=== PATIENT | female | born 1955 | race Caucasian/White ===

== ENCOUNTER 2018-03-30 09:52 | Emergency (ER) | payer BC ==
--- NOTE | 2018-03-30 10:19 | UC ---
Respiratory Complaint HPI - HPI Summary HPI Summary: 62 yo female presents with sinus pain/pressure/congestion, post nasal drip, and productive cough for the last week. She has been taking sudafed and OTC cold and cough medicine with no relief. Denies fever, chills, SOB, chest pain, n/v. - History of Current Complaint Stated Complaint: URI Time Seen by Provider: 03/30/18 10:19 Hx Obtained From: Patient Hx Last Menstrual Period: n/a Onset/Duration: Gradual Onset Severity Initially: Mild Severity Currently: Mild Pain Intensity: 3 Pain Scale Used: 0-10 Numeric - Allergies/Home Medications Allergies/Adverse Reactions: Allergies Allergy/AdvReac Type Severity Reaction Status Date / Time No Known Allergies Allergy Verified 03/30/18 10:21 Home Medications: Home Medications Guaifenesin/Dextromethorphan [Cough-Chest Congestion Dm Liq] 1 dose PO Q4H PRN 03/30/18 [History Confirmed 03/30/18] PMH/Surg Hx/FS Hx/Imm Hx - Additional Past Medical History Additional PMH: None Other History Of: Negative For: HIV, Hepatitis B, Hepatitis C - Surgical History Surgical History: Yes Surgery Procedure, Year, and Place: D&C - Family History Known Family History: Positive: None Negative: Cardiac Disease, Hypertension - Social History Occupation: Employed Full-time Lives: With Family Alcohol Use: Weekly Substance Use Type: None Smoking Status (MU): Never Smoked Tobacco Review of Systems Constitutional: Negative Skin: Negative Eyes: Negative ENT: Nasal Discharge, Sinus Congestion, Sinus Pain/Tenderness Respiratory: Cough Cardiovascular: Negative Gastrointestinal: Negative Neurovascular: Negative Neurological: Negative Psychological: Negative All Other Systems Reviewed And Are Negative: Yes Physical Exam - Summary Physical Exam Summary: GENERAL: NAD. WDWN. No pain distress. SKIN: No rashes, sores, lesions, or open wounds. HEENT: Head: AT/NC Eyes: EOM intact. Conjunctiva clear without inflammation or discharge. Ears: Hearing grossly normal. TMs intact, no bulging, erythema, or edema. Nose: Nasal mucosa mildly swollen and erythematous with yellow/ clear discharge. NTTP maxillary and frontal sinus. Positive post nasal drip Throat: Posterior oropharynx without exudates, erythema, or tonsillar enlargement. Uvula midline. NECK: Supple. Nontender. No lymphadenopathy. CHEST: CTAB. No r/r/w. No accessory muscle use. Breathing comfortably and in no distress. CV: RRR. Without m/r/g. Pulses intact. NEURO: Alert. PSYCH: Age appropriate behavior. Triage Information Reviewed: Yes Vital Signs: Vital Signs: Temp Pulse Resp BP Pulse Ox 98.3 F 66 20 150/74 97 03/30/18 10:16 03/30/18 10:16 03/30/18 10:16 03/30/18 10:16 03/30/18 10:16 Vital Signs Reviewed: Yes Respiratory Course/Dx - Course Course Of Treatment: Sinusitis - Differential Dx/Diagnosis Provider Diagnoses: sinusitis Discharge - Sign-Out/Discharge Documenting (check all that apply): Patient Departure All imaging exams completed and their final reports reviewed: No Studies - Discharge Plan Condition: Stable Disposition: HOME Prescriptions: Amoxicillin PO (*) [Amoxicillin 500 MG CAP*] 500 mg PO Q12H #14 cap Patient Education Materials: Sinusitis (ED) Referrals: Antonia Nugent MD [Primary Care Provider] - Additional Instructions: If you develop a fever, shortness of breath, chest pain, new or worsening symptoms - please call your PCP or go to the ED. Your blood pressure was high at todays visit. Please see your primary provider within 4 weeks for recheck and re-evaluation. - Billing Disposition and Condition Condition: STABLE Disposition: Home
[2018-03-30 10:21] VITALS: BP 150/74
== END 2018-03-30 10:40 | disposition home or self-care (01) ==
LOC: UCEAST 09:52
DX: J32.9 Chronic sinusitis, unspecified (principal)
CPT/HCPCS: 99212; G0463

== ENCOUNTER 2019-08-05 09:09 | Emergency (ER) | payer MEDICARE, BC ==
--- OUTSIDE RECORDS SUMMARY | 2019-08-05 09:30 | XMS REPORT | Summary of Care ---
:1955 Author Organization [facility] Address [address] [place] [address] Care Team Providers Name Role Phone Antonia Nugent MD Primary Care Provider Encounter Details Date Type Department Care Team Description 06/30/2019 Hospital Encounter [facility] Carlos Beth MD [facility] [address] [employer] [facility] [address] [place], [place] [id number] [place] [address] [phone] Allergies No Known Allergiesdocumented as of this encounter (statuses as of 07/01/2019) Medications Medication Sig Dispensed Refills Start Date End Date Status LEVOTHYROXINE SODIUM PO Take by mouth. 0 Active Nutritional Supplements Take by mouth 0 Active (STATINS SUPPORT DAILY. PO)Indications: Statin Indications: Statin atorvastatin (LIPITOR) Take 10 mg by 0 Active 10 MG Oral Tab mouth DAILY. documented as of this encounter (statuses as of 07/01/2019) Active Problems Problem Noted Date Traumatic tear of medial meniscus of left knee 06/14/2019 Overview: Added automatically from request for surgery [id number] documented as of this encounter (statuses as of 07/01/2019) Social History Tobacco Use Types Packs/Day Years Used Date Never Smoker 0 Smokeless Tobacco: Never Used Alcohol Use Drinks/Week oz/Week Comments Yes occasional Sex Assigned at Date Recorded Not on file Job Start Date Occupation Industry Not on file Not on file Not on file Travel History Travel Start Travel End No recent travel history available. documented as of this encounter Last Filed Vital Signs Vital Sign Reading Time Taken Comments Blood Pressure 121/72 06/30/2019 3:55 PM EST Pulse 67 06/30/2019 3:55 PM EST Temperature 36 06/30/2019 3:55 PM EST C (96.8 F) Respiratory Rate 17 06/30/2019 3:55 PM EST Oxygen Saturation 95% 06/30/2019 3:55 PM EST Inhaled Oxygen Concentration - - Weight 90.3 kg (199 lb) 06/30/2019 12:30 PM EST Height 170.2 cm (5' 7") 06/30/2019 12:30 PM EST Body Mass Index 31.17 06/30/2019 12:30 PM EST documented in this encounter Discharge Instructions Shelley Taylor RPA-C - 06/30/2019[facility] Orthopedic Discharge Instructions Provider's Instructions Reason for Admission or Diagnosis:Traumatic tear of medial meniscus of left knee , subsequent encounter Discharge Provider: DELORIS Garcia Attending: Carlos Beth MD Time: 14:26 1. Keep you dressing and/or cast dry and intact DO NOT REMOVE 2. Elevate your operated or injured limb above hear level frequently to alleviate swelling and discomfort. 3. Wiggle your fingers/toes of the operated limb frequently to prevent and reduce swelling. 4.Call the office at if any of the following occur: If you develop a temperature greater than 101 degrees If you should develop swelling, numbness, or loss of motion in your fingers or toes ofthe operated limb that doesn't respond to elevation above the heart for 4-6 hours If you should develop progressively increased pain after 48 hours not relieved with pain medication 5. Use an ice bag or cryotherapy for 3-5 days. Then as needed for pain and swelling. 6. Diet: You may resume as before admission 7. Medications: If you were given a prescription, get it filled and take as directed. (see your after visit summary for resuming other medications as reviewed with your discharge nurse) Take ibuprofen 600 mg 3 x a day with food 8. Activity/Restrictions: As tolerated after 48 hours 9. Weight bearing status: As tolerated without crutches. 10. Driving: You may drive if not taking pain medication 11. Work: remain out of work until further notice 12. Exercises: Start 1-2 days post op. _X__Straight leg raises: while lying flat on your back, keep knee straight, raise the ankle 8inches for 10 repetitions every hour. _X__ Gentle knee flexion and extension 2-3 times a day 5 minutes at a time. ___ Pendulums: Bend at the waist and do gentle circles with your arm, do this 4-5 times a dayfor 5 minutes. 13. Physical Therapy: _X__ None needed. ___ Start on . Follow up in the office Appointments: 10 days to 2 weeks. Additional Instructions: Smoking: If you or your caregiver smoke, we recommend that you/they quit. For smoking cessation help, pleasecall the [facility] Smokers Quitline at ([place] residents) or the National Quit Line at . QUESTIONS OR CONCERNS AFTER DISCHARGE: Call: [facility] at [phone] *Please Return Patient Satisfaction Survey* I understand these discharge instructions: Patient or Guardian Signature: Date and Time Physician ocean transportation intermediary Signature Date and Time documented in this encounter Plan of Treatment Date Type Specialty Care Team Description 07/12/2019 Office Visit Orthopedics Shelley Maria, RPA-C [address] [place] [address] [phone] Name Type Priority Associated Diagnoses Order Schedule GLUCOSE (POCT) Automated POCT Routine X1 for 1 Occurrences starting 06/30/2019 until 06/30/2019 Health Maintenance Due Date Last Done Comments MEDICARE ANNUAL WELLNESS VISIT 1955 DTaP/Tdap/Td Vaccines (1 - Tdap) 1965 DEPRESSION SCREENING 1966 HIV SCREENING 1969 DIABETES SCREENING 1972 HEPATITIS C SCREENING 1994 MAMMOGRAM (SCREENING) 1994 Colonoscopy 2004 ZOSTER IMMUNIZATION SERIES (1 of 2004 2) INFLUENZA VACCINE (#1) 2019 FALL RISK ASSESSMENT 2019 OSTEOPOROSIS SCREENING 2019 PNEUMOCOCCAL 65+YRS (1 of 2 - 2019 PCV13) LIPID DISORDER SCREENING 06/25/2024 06/25/2019 HEPATITIS A IMMUNIZATION SERIES Aged Out No longer eligible based on patient's age to complete this topic HPV IMMUNIZATION SERIES Aged Out No longer eligible based on patient's age to complete this topic MENINGOCOCCAL VACCINE IMM Aged Out No longer eligible based on patient's age to complete this topic documented as of this encounter Procedures Procedure Name Priority Date/Time Associated Diagnosis Comments ARTHROSCOPY KNEE Planned Trip to [place] 06/30/2019 1:08 PM Traumatic tear of EST medial meniscus of left knee, subsequent encounter Special Needs Phone PAT completed with pt. Health and medication hx reviewed with pt. Instructed on location of the SDS center, NPO status, need for hazmat cdl a driver, to have ice on hand and to hot die picker pain medication after preop visit. Pt aware she can take levothyroxine the A M of procedure with a sip of water. Pt verbalized understanding of all instructions. SURGICAL PHOTO 06/30/2019 12:00 PM EST EXTERNAL CARDIOLOGY TEST 06/30/2019 12:00 PM EST EXTERNAL SCANNED LAB 06/30/2019 12:00 PM EST documented in this encounter Results EXTERNAL SCANNED LAB (06/30/2019 12:00 PM EST) Narrative Performed At EXTERNAL CARDIOLOGY TEST (06/30/2019 12:00 PM EST) Narrative Performed At documented in this encounter Visit Diagnoses Diagnosis Traumatic tear of medial meniscus of left knee Tear of medial cartilage or meniscus of knee, current documented in this encounter Administered Medications Medication Order MAR Action Action Date Dose Rate Site dextrose 5% and lactated ringers IV Intravenous, at 100 mL/hr, CONTINUOUS, Starting Fri06/30/19 at 1210, Until Fri06/30/19 at 1844 FentaNYL (PF) (SUBLIMAZE) injection (PF) 50 mcg 50 mcg, Intravenous Push, Q5 MIN PRN, 2 doses, Starting Fri06/30/19 at 1442, Until Fri06/30/19 at 1844, Moderate Pain (pain scale 4-6) - IV - 1st line - if immediate effect required or patient cannot tolerate PO, Severe Pain (pain scale 7-10) - IV - 1st line - if immediate effect required or patient cannot tolerate PO, 4 Recovery HYDROmorphone (DILAUDID) syringe 0.5 mg 0.5 mg, Intravenous, Q5 MIN PRN, 4 doses, Starting Fri06/30/19 at 1442, Until Fri06/30/19 at 1844, Moderate Pain (pain scale 4-6)IV 2nd line- if immediate effect required or cannot tolerate PO & still had moderate pain 2 hrs after admin of 1st line agent or did not tolerate 1st line agent, Severe Pain (pain scale 7-10)IV 2nd line - if immediate effect required or cannot tolerate PO & no still has severe pain 1 hr after admin of 1st line agent or did not tolerate 1st line agent, 4 Recovery lactated ringers IV Intravenous, at 100 mL/hr, PRU CONTINUOUS, Starting Fri06/30/19 at 1450, Until Fri06/30/19 at 1844, 4 Recovery, PRU, meperidine (DEMEROL) syringe 12.5 mg Given 06/30/2019 2:58 PM EST 12.5 mg 12.5 mg, Intravenous Push, Q5 MIN PRN, 2 doses, Starting Fri06/30/19 at 1442, Until Fri06/30/19 at 1458, Shivering/Chills/Rigors, 4 Recovery Given 06/30/2019 2:53 PM EST 12.5 mg midazolam (VERSED) injection 0.5 mg 0.5 mg, Intravenous, Q5 MIN PRN, 2 doses, Starting Fri06/30/19 at 1442, Until Fri06/30/19 at 1844, Anxiety - IV - 1st line - if immediate effect required or patient cannot tolerate PO, 4 Recovery prochlorperazine (COMPAZINE) injection 2.5 mg 2.5 mg, Intravenous Push, Q10 MIN PRN, 2 doses, Starting Fri06/30/19 at 1442, Until Fri06/30/19 at 1844, Nausea/Vomiting - IV - 1st line - If immediate effect required or patient cannot tolerate PO, 4 Recovery documented in this encounter Insurance Payer Benefit Plan / Subscriber ID Effective Dates Phone Address Type Group MEDICARE MEDICARE PART A & xxxxxxxxxxx 2019-Present Medicare B [employer] xxxxxxxxxxxx 2013-Present [employer] documented as of this encounter
--- OUTSIDE RECORDS SUMMARY | 2019-08-05 09:30 | XMS REPORT | Summary of Care ---
:1955 Author Organization [facility] Address [address] [place] [address] Care Team Providers Name Role Phone Antonia Nugent MD Primary Care Provider Reason for Visit Reason Comments Post-op Follow-up Post-op left knee EUA 06-30-19. Suture removal. Encounter Details Date Type Department Care Team Description 07/12/2019 Office Visit [facility] - Shelley Maria, S/P left knee [place] RPA-C arthroscopy (Primary [address]) [place] [address] [place] [address] [phone] Allergies No Known Allergiesdocumented as of this encounter (statuses as of 07/12/2019) Medications Medication Sig Dispensed Refills Start Date End Date Status LEVOTHYROXINE SODIUM PO Take by mouth. 0 Active Nutritional Supplements Take by mouth 0 Active (STATINS SUPPORT DAILY. PO)Indications: Statin Indications: Statin HYDROcodone-acetaminophe Take 1 Tab by 12 Tab 0 06/24/2019 Active n (NORCO) 5-325 MG Oral mouth EVERY SIX Tab HOURS NEEDED (pain). Max Daily Amount: 4 Tabs. atorvastatin (LIPITOR) Take 10 mg by 0 Active 10 MG Oral Tab mouth DAILY. documented as of this encounter (statuses as of 07/12/2019) Active Problems Problem Noted Date S/P left knee arthroscopy 07/12/2019 Traumatic tear of medial meniscus of left knee 06/14/2019 Overview: Added automatically from request for surgery [id number] documented as of this encounter (statuses as of 07/12/2019) Social History Tobacco Use Types Packs/Day Years [...] Sign Reading Time Taken Comments Blood Pressure 105/68 07/12/2019 9:35 AM EST Pulse 75 07/12/2019 9:35 AM EST Temperature - - Respiratory Rate - - Oxygen Saturation - - Inhaled Oxygen Concentration - - Weight 90.3 kg (199 lb) 07/12/2019 9:35 AM EST Height 170.2 cm (5' 7") 07/12/2019 9:35 AM EST Body Mass Index 31.17 07/12/2019 9:35 AM EST documented in this encounter Progress Notes Shelley Maria RPA-C - 07/12/2019 9:15 AM EST Name: Deja Clay : 1955 Date of Service: 07/12/2019 CHIEF COMPLAINT: Chief Complaint Patient presents with Post-op Follow-up Post-op left knee EUA 06-30-19. Suture removal. HPI: Deja Clay is a 64-y.o. female who presents to the office today for 1st postop s/p left knee arthroscopy that was done by Dr. Beth. Doing well. Minimal complaints of pain. PHYSICAL EXAM: On exam the left knee incisions are healing well. Sutures were removed and steri -strips were applied. She has 120 degree extension and 120 degree of flexion. The calf is soft and non tender to palpation. Negative hohmans. NV intact to the left lower extremity. She is moving the ankle without difficulty. She is not walking with an antalgic gait. ASSESSMENT: ICD-9-CM ICD-10-CM 1. S/P left knee arthroscopy V45.89 Z98.890 PLAN: Patient will continue a home exercise program. Patient will follow up in 3 weeks for reevaluation.No jazzercise until after the next visit. Author: DELORIS aGrcia 07/12/2019 09:41 documented in this encounter Plan of Treatment Date Type Specialty Care Team Description 07/27/2019 Office Visit Orthopedics Carlos Beth MD [address] [place] [address] [phone] Health Maintenance Due Date Last Done Comments [...] this topic documented as of this encounter Results Not on filedocumented in this encounter Visit Diagnoses Diagnosis S/P left knee arthroscopy Other postprocedural status documented in this encounter Insurance Payer Benefit Plan / Subscriber ID Effective Dates Phone Address Type Group MEDICARE MEDICARE PART A & xxxxxxxxxxx 2019-Present Medicare B [employer] xxxxxxxxxxxx 2013-Present [employer] documented as of this encounter
--- OUTSIDE RECORDS SUMMARY | 2019-08-05 09:30 | XMS REPORT | Summary of Care ---
:1955 Author Organization [facility] Address [address] [place] [address] Care Team Providers Name Role Phone Antonia Nugent MD Primary Care Provider Reason for Visit Reason Comments Surgical Followup left knee Encounter Details Date Type Department Care Team Description 07/27/2019 Office Visit [facility] - Carlos Beth MD S/P left knee [place] [address] [facility] arthroscopy (Primary [address] [facility] [address] [place] [address] [place] [address] [phone] Allergies No Known Allergiesdocumented as of this encounter (statuses as of 07/27/2019) Medications Medication Sig Dispensed Refills Start Date End Date Status LEVOTHYROXINE Take by 0 Active SODIUM PO mouth. Nutritional Take by 0 Active Supplements mouth DAILY. (STATINS SUPPORT Indications: PO)Indications: Statin Statin atorvastatin Take 10 mg 0 Active (LIPITOR) 10 MG by mouth Oral Tab DAILY. HYDROcodone-acetami Take 1 Tab 12 Tab 0 06/24/2019 Discontinued nophen (NORCO) by mouth 0 (Therapy 5-325 MG Oral Tab EVERY SIX Completed) HOURS NEEDED (pain). Max Daily Amount: 4 Tabs. documented as of this encounter (statuses as of 07/27/2019) Active Problems Problem Noted Date S/P left knee arthroscopy 07/12/2019 Traumatic tear of medial meniscus of left knee 06/14/2019 Overview: Added automatically from request for surgery [id number] documented as of this encounter (statuses as of 07/27/2019) Social History Tobacco Use Types Packs/Day Years Used Date Never Smoker 0 Smokeless Tobacco: Never Used Alcohol Use Drinks/Week oz/Week Comments Yes occasional Sex Assigned at Date Recorded Not on file documented as of this encounter Last Filed Vital Signs Vital Sign Reading Time Taken Comments Blood Pressure 113/46 07/27/2019 8:55 AM EST Pulse 80 07/27/2019 8:55 AM EST Temperature - - Respiratory Rate - - Oxygen Saturation - - Inhaled Oxygen Concentration - - Weight 90.3 kg (199 lb) 07/27/2019 8:55 AM EST Height 170.2 cm (5' 7") 07/27/2019 8:55 AM EST Body Mass Index 31.17 07/27/2019 8:55 AM EST documented in this encounter Progress Notes Carlos Beth MD - 07/27/2019 9:00 AM EST Name: Deja Clay : 1955 Date of Service: 07/27/2019 Chief Complaint Patient presents with ? Surgical Followup left knee History of Present Illness: Deja Clay is a 64-y.o. female. The above is noted. Patient is in today for follow-up status post left knee arthroscopy performed on 06/30/2019. Overall she is doing well. Patient states that she is unable to kneel on her left knee as yet. Physical Examination: BP 113/46 | Pulse 80 | Ht 5' 7" (1.702 m) | Wt 199 lb (90.3 kg) | BMI 31.17 kg/m Well-developed well-nourished female in minimal discomfort at rest. Patient is neurovascular intact. Range of motion of left knee: Reveals full extension, flexion 115 degrees after which she has milddiscomfort. Patient walks with a minimally antalgic gait. Impression: Status post left knee arthroscopy/improved Plan: Follow-up in 6 weeks or as needed All questions were answered. There are no Patient Instructions on file for this visit. Author: Carlos Beth MD 07/27/2019 09:04 documented in this encounter Plan of Treatment Date Type Specialty Care Team Description 09/14/2019 Office Visit Orthopedics Carlos Beth MD [address] [place] [address], [place] [address] [phone] Health Maintenance Due Date Last Done Comments [...] Type Group MEDICARE MEDICARE PART A & [id number] 2019-Present Medicare B [employer] [id number] 2013-Present [employer] documented as of this encounter
--- OUTSIDE RECORDS SUMMARY | 2019-08-05 09:30 | XMS REPORT | Summary of Care ---
:1955 Author Organization [facility] Address [address] [place] [address] Care Team Providers Name Role Phone Antonia Nugent MD Primary Care Provider Reason for Visit Reason Comments Pre-op Exam Left Knee Arthroscopy scheduled for 06/30/2019. Encounter Details Date Type Department Care Team Description 06/24/2019 Office Visit [facility] - Shelley Maria, Traumatic tear of [place] RPA-C medial meniscus of [address] 10 [facility] left knee, subsequent [address] encounter ([place] [address] [place] [address] Dx) [phone] Allergies No Known Allergiesdocumented as of this encounter (statuses as of 06/24/2019) Medications Medication Sig Dispensed Refills Start Date [...] as of this encounter (statuses as of 06/24/2019) Active Problems Problem Noted Date Traumatic tear of medial meniscus of left knee 06/14/2019 Overview: Added automatically from request for surgery [id number] documented as of this encounter (statuses as of 06/24/2019) Social History Tobacco Use Types Packs/Day Years [...] Sign Reading Time Taken Comments Blood Pressure 129/72 06/24/2019 9:11 AM EST Pulse - - Temperature - - Respiratory Rate - - Oxygen Saturation - - Inhaled Oxygen Concentration - - Weight 86.2 kg (190 lb) 06/24/2019 9:11 AM EST Height 170.2 cm (5' 7") 06/24/2019 9:11 AM EST Body Mass Index 29.76 06/24/2019 9:11 AM EST documented in this encounter Progress Notes Shelley Maria, PIYUSH-C - 06/24/2019 9:00 AM EST Name: Deja Clay . 1955 Date of Service: 06/24/2019 No chief complaint on file. Subjective: Deja Clay is a 64-y.o. female is here for pre-op evaluation for left knee arthroscopy . Surgeryis scheduled with Dr. Beth on 06/30/19. She had no specific injury , but does jazzercise. Had an mri scan which showed a medial meniscus tear and patellofemoral joint DJD. She has failed a conservative course of treatment . Past Medical History: Diagnosis Date Hypothyroidism Toe fracture Past Surgical History: Procedure Laterality Date DILATATION AND CURETTAGE No Known Allergies Current Outpatient Medications Medication Sig LEVOTHYROXINE SODIUM PO Take by mouth. Nutritional Supplements (STATINS SUPPORT PO) Take by mouth DAILY. Indications: Statin No current facility-administered medications for this visit. Physical Exam: <Not on file> GENERAL: alert and oriented time three. no acute distress SKIN: intact without lesions or rashes. LUNGS: clear to ascultation bilaterally in all larson without wheezes or rales. HEART: regular rate and rhythm without murmers or rubs noted. ABDOMEN: soft and non tender PVS: Negative edema noted of the left lower extremity. There is no obvious clinical deformity. Range of motion of the left knee demonstrates extension 0, flexion 120. Patient has tenderness over the medial joint line. Ligamentous stress testing reveals Negative Lachmans, Anterior drawer Gallo's test is Positive. ICD-9-CM ICD-10-CM 1. Traumatic tear of medial meniscus of left knee, subsequent encounter V58.89 S83.242D 836.0 Plan: Deja Clay is scheduled for a knee arthroscopy with Dr. Beth . Deja Clay was given [place] for post op use. she is not out of work at this point. Author: DELORIS Garcia 06/24/2019 09:10 documented in this encounter Plan of Treatment Date Type Specialty Care Team Description 06/30/2019 Hospital Encounter [facility] Carlos Beth, Short Procedure [address] [place] [id number] [phone] 06/30/2019 Surgery [facility] Carlos Beth, ARTHROSCOPY KNEE [address] [place] [address] [phone] 07/12/2019 Office Visit Orthopedics Shelley Maria RPA-C [address] [place] [address] [phone] Health Maintenance Due Date Last Done Comments MEDICARE ANNUAL WELLNESS VISIT 1955 DTaP/Tdap/Td Vaccines (1 - Tdap) 1965 DEPRESSION SCREENING 1966 HIV SCREENING 1969 DIABETES SCREENING 1972 LIPID DISORDER SCREENING 1972 HEPATITIS C SCREENING 1994 MAMMOGRAM (SCREENING) 1994 Colonoscopy 2004 ZOSTER IMMUNIZATION SERIES (1 of 2) 2004 INFLUENZA VACCINE (#1) 2019 FALL RISK ASSESSMENT 2019 OSTEOPOROSIS SCREENING 2019 PNEUMOCOCCAL 65+YRS (1 of 2 - 2019 PCV13) HEPATITIS A IMMUNIZATION SERIES Aged Out No [...] filedocumented in this encounter Visit Diagnoses Diagnosis Traumatic tear of medial meniscus of left knee, subsequent encounter Diagnosis Traumatic tear of medial meniscus of left knee, subsequent encounter Diagnosis Traumatic tear of medial meniscus of left knee Tear of medial cartilage or meniscus of knee, current documented in this encounter Insurance Payer Benefit Plan / Subscriber ID Effective Dates Phone Address Type Group MEDICARE MEDICARE PART A & xxxxxxxxxxx 2019-Present Medicare B [employer] xxxxxxxxxxxx 2013-Present [employer] documented as of this encounter
--- OUTSIDE RECORDS SUMMARY | 2019-08-05 09:30 | XMS REPORT | Summary of Care ---
:1955 Author Organization [facility] Address [address] [place] [address] Care Team Providers Name Role Phone Antonia Nugent MD Primary Care Provider Reason for Visit Reason Comments Follow Up Left knee pain. Patient states that her left knee is doing about the same as it was. PT did not help, so she stopped going. Patient wants other options. Encounter Details Date Type Department Care Team Description 06/11/2019 Office Visit [facility] - Carlos Beth MD Traumatic tear of [place] 10 [facility] medial meniscus of [address] [facility] [address] left knee, [place] [address] encounter ([place] [address] Dx) [phone] Allergies No Known Allergiesdocumented as of this encounter (statuses as of 06/13/2019) Medications Medication Sig Dispensed Refills Start Date End Date Status LEVOTHYROXINE SODIUM PO Take by mouth. 0 Active documented as of this encounter (statuses as of 06/13/2019) Active Problems No known active problemsdocumented as of this encounter (statuses as of 2019) Social History Tobacco Use Types Packs/Day Years Used Date Never Smoker 0 Smokeless Tobacco: Never Used Sex Assigned at Date Recorded Not on file Job Start Date Occupation Industry Not on file Not on file Not on file Travel History Travel Start Travel End No recent travel history available. documented as of this encounter Last Filed Vital Signs Vital Sign Reading Time Taken Comments Blood Pressure 149/89 06/11/2019 9:08 AM EST Pulse 69 06/11/2019 9:08 AM EST Temperature - - Respiratory Rate - - Oxygen Saturation - - Inhaled Oxygen Concentration - - Weight 86.2 kg (190 lb) 06/11/2019 9:08 AM EST Height 170.2 cm (5' 7") 06/11/2019 9:08 AM EST Body Mass Index 29.76 06/11/2019 9:08 AM EST documented in this encounter Progress Notes Carlos Beth MD - 06/11/2019 9:00 AM EST Name: Deja Clay : 1955 Date of Service: 06/11/2019 Chief Complaint Patient presents with Follow Up Left knee pain. Patient states that her left knee is doing about the same as it was. PT did not help, so she stopped going. Patient wants other options. History of Present Illness: Deja Clay is a 64-y.o. female. The above is noted. Patient is in today complaining of left medial knee pain. Last seen in the office by Frida Maria on 04/23/2019. The patient had ordered an MRIwhich revealed evidence of patellofemoral degenerative joint disease and a medial meniscus tear. States that her pain has exacerbated since January leading into the fall. She has gone to physical therapy and has performed exercises she has been on a stationary bike but states that even when she is sleeping if her medial aspect of her left knee touches a relatively hard surface i.e. her right knee she has pain she complains of mild catching but no locking. Physical Examination: BP (!) 149/89 | Pulse 69 | Ht 5' 7" (1.702 m) | Wt 190 lb (86.2 kg) | BMI 29.76 kg/m Well-developed well-nourished female in minimal discomfort at rest. She was examined in the supine position she has full extension of her left knee, she has flexion to 125 degrees she has no varus or valgus instability. Ayala's test is negative at 25 to 30 degrees flexion. The patient has tenderness on palpation of her mid medial to posterior medial joint line. She has a positive Gallo's test with reference to pain but not a palpable click regarding her medial joint line. She has a negative Gallo's test with reference to her entire lateral joint line. Impression: Medial meniscus tear, refractory to physical therapy. Plan: In view of the longevity of patient's symptoms I would like for patient to be scheduled for surgicalintervention in the form of left knee arthroscopy and probable partial medial meniscectomy when feasible all the patient's questions were answered to her complete satisfaction. All questions were answered. There are no Patient Instructions on file for this visit. Author: Carlos Beth MD 06/11/2019 09:22 documented in this encounter Plan of Treatment Health Maintenance Due Date Last Done Comments [...] medial meniscus of left knee, subsequent encounter documented in this encounter Insurance Payer Benefit Plan / Subscriber ID Effective Dates Phone Address Type Group MEDICARE MEDICARE PART A & xxxxxxxxxxx 2019-Present Medicare B [employer] xxxxxxxxxxxx 2013-Present [employer] documented as of this encounter
[2019-08-05 09:44] LABS: ABS Basophils 0.1 10^3/ul (0-0.2); ABS Lymphocytes 1.1 10^3/ul (1.0-4.8); ABS Monocytes 0.4 10^3/ul (0-0.8); ABS Neutrophils 8.2 10^3/ul (1.5-7.7); Eosinophil % 0.4 %; Hematocrit 40 % (35-47); Hemoglobin 13.8 g/dL (12.0-16.0); Lymphocyte % 10.9 %; Mean Corpuscular HGB Conc 34 g/dL (31-36); Mean Corpuscular Hemoglobin 28 pg (27-31); Mean Corpuscular Volume 83 fL (80-97); Mean Platelet Volume 7.5 fL (7.4-10.4); Platelet Count 252 10^3/uL (150-450); Red Blood Count 4.86 10^6 /uL (3.70-4.87); Red Cell Distribution Width 15 % (10-15); White Blood Count 9.7 10^3/uL (3.5-10.8)
[2019-08-05 09:56] LABS: Activated Partial Thrombo Time 45.5 seconds (26.0-38.0); INR 1.23 (0.82-1.09)
--- NOTE | 2019-08-05 09:59 | ED ---
GI/ HPI - HPI Summary HPI Summary: Patient is a 64 y/o female presenting to [facility] with a chief complaint of LLQ pain with rectal bleeding onset yesterday afternoon. She reports that she suddenly felt an intense pain in the lower abdomen yesterday afternoon which last for approximately 10-15 minutes before resolving. During the episode, she felt lightheaded, nauseous, and diaphoretic. She had abdominal pressure for the rest of the evening in the left abdomen. Around 2100, she went to the bathroom and found rectal bleeding but no hematuria. She had 4-5 more episodes of bleeding throughout the night with the most recent occurring around 0800 this morning, but the quantity of bleeding was less. She is not currently in pain. She notes that she had experienced similar episodes of abdominal pain but usually not this severe. About 3-5 years ago, she had a similar experience with rectal bleeding with subsequent negative workup. She had a colonoscopy about a year ago with polyp removal. She denies any fevers, chills, erythema of eyes, sore throat, CP, SOB, cough, vomiting, change in appetite, dysuria, flank pain, myalgia, back pain, edema, rash, or dizziness. Last BM was 08/03/2019, which is usual for her. States frequent Ibuprofen use prior to knee surgery. Patient states I am freaking out, as she is nervous about possible results. Past medical history significant for hypothyroidism, HLD. Family history includes diverticulitis in mother. Nonsmoker, weekly alcohol use, no substance use. Medications reviewed. Allergies noted. - History of Current Complaint Chief Complaint: EDGIBleed Time Seen by Provider: 08/05/19 09:18 Stated Complaint: ABDOMINAL PAIN AND RECTAL BLEEDING PER PT Hx Obtained From: Patient Hx Last Menstrual Period: n/a Onset/Duration: Started Hours Ago, Still Present Timing: Lasting Hours Severity: Moderate Current Severity: None Pain Intensity: 0 Location of Pain: LLQ Pain Characteristics: Sharp Associated Signs and Symptoms: Positive: Nausea, Diaphoresis, Lightheadedness, Abdominal Pain. Negative: Back Pain, Dizziness, Vomiting, Fever, Hematuria, Dysuria, Change in Appetite, Flank Pain, Chills, Cough, Chest Pain, Other: - erythema of eyes, sore throat, CP, SOB, cough, change in appetite, myalgia, back pain, edema, rash - Allergy/Home Medications Allergies/Adverse Reactions: Allergies Allergy/AdvReac Type Severity Reaction Status Date / Time No Known Allergies Allergy Verified 08/05/19 09:12 Home Medications: Home Medications Levothyroxine TAB* [Synthroid TAB*] 25 mcg PO DAILY 06/19/18 [History Confirmed 08/05/19] Atorvastatin* [Lipitor*] 10 mg PO BEDTIME 08/05/19 [History Confirmed 08/05/19] Ciprofloxacin TAB* [Cipro 500 MG TAB*] 500 mg PO BID #28 tab 08/05/19 [Rx] metroNIDAZOLE [Flagyl 500 MG TAB] 500 mg PO TID #42 tab 08/05/19 [Rx] PMH/Surg Hx/FS Hx/Imm Hx Endocrine/Hematology History: Reports: Hx Thyroid Disease Denies: Hx Diabetes Cardiovascular History: Reports: Hx Hypercholesterolemia Denies: Hx Congestive Heart Failure, Hx Deep Vein Thrombosis, Hx Hypertension , Hx Myocardial Infarction, Hx Pacemaker/ICD Respiratory History: Denies: Hx Asthma, Hx Chronic Obstructive Pulmonary Disease (COPD), Hx Lung Cancer, Hx Pneumonia, Hx Pulmonary Embolism GI History: Denies: Hx Gall Bladder Disease, Hx Gastrointestinal Bleed, Hx Ulcer, Hx Urosepsis History: Denies: Hx Kidney Stones, Hx Renal Disease Sensory History: Denies: Hx Hearing Aid Neurological History: Denies: Hx Dementia, Hx Migraine, Hx Seizures, Hx Transient Ischemic Attacks (TIA) Psychiatric History: Denies: Hx Anxiety, Hx Depression, Hx Panic Disorder, Hx Schizophrenia, Hx Bipolar Disorder - Cancer History Hx Chemotherapy: No Hx Radiation Therapy: No - Surgical History Surgical History: Yes Surgery Procedure, Year, and Place: D&C, knee surgery Infectious Disease History: No Infectious Disease History: Denies: Hx Clostridium Difficile, Hx Hepatitis, Hx Human Immunodeficiency Virus (HIV), Hx of Known/Suspected MRSA, Hx Shingles, Hx Tuberculosis, Hx Known/ Suspected VRE, Hx Known/Suspected VRSA, History Other Infectious Disease, Traveled Outside the [place] in Last 30 Days - Family History Known Family History: Positive: Other - diverticulitis Negative: Cardiac Disease, Hypertension - Social History Alcohol Use: Weekly Alcohol Amount: glass of wine Hx Substance Use: No Substance Use Type: Reports: None Hx Tobacco Use: No Smoking Status (MU): Never Smoked Tobacco Review of Systems Positive: Skin Diaphoresis. Negative: Fever, Chills Negative: Erythema Negative: Sore Throat Negative: Chest Pain Negative: Shortness Of Breath, Cough Positive: Abdominal Pain - LLQ, Nausea, Other - rectal bleeding; Negative: decreased appetite. Negative: Vomiting Negative: dysuria, flank pain, hematuria Negative: Myalgia, Edema, Other - back pain Negative: Rash Neurological/Mental Status: Other - Negative: dizziness Positive: Anxious All Other Systems Reviewed And Are Negative: Yes Physical Exam - Summary Physical Exam Summary: Constitutional: Well-developed, Well-nourished, Alert. (-) Distressed Skin: Warm, Dry HENT: Normocephalic; Atraumatic Eyes: Conjunctiva normal Neck: Musculoskeletal ROM normal neck. (-) JVD, (-) Stridor, (-) Tracheal deviation Cardio: Rhythm regular, rate normal, Heart sounds normal; Intact distal pulses; The pedal pulses are 2+ and symmetric. Radial pulses are 2+ and symmetric. (-) Murmur Pulmonary/Chest wall: Effort normal. 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 operator) in room, No hemorrhoids, Empty vault Triage Information Reviewed: Yes Vital Signs On Initial Exam: Initial Vitals Temp Pulse Resp BP Pulse Ox 97.9 F 115 18 155/116 99 08/05/19 09:12 08/05/19 09:12 08/05/19 09:12 08/05/19 09:12 08/05/19 09:12 Vital Signs Reviewed: Yes Procedures - Sedation Patient Received Moderate/Deep Sedation with Procedure: No Diagnostics - Vital Signs Vital Signs Temp Pulse Resp BP Pulse Ox 08/05/19 09:12 97.9 F 115 18 155/116 99 - Laboratory Lab Results: Lab Results 08/05/19 Range/Units 09:33 WBC 9.7 (3.5-10.8) 10^3/uL RBC 4.86 (3.70-4.87) 10^6 /uL Hgb 13.8 (12.0-16.0) g/dL Hct 40 (35-47) % MCV 83 (80-97) fL MCH 28 (27-31) pg MCHC 34 (31-36) g/dL RDW 15 (10-15) % Plt Count 252 (150-450) 10^3/uL MPV 7.5 (7.4-10.4) fL Neut % (Auto) 83.6 % Lymph % (Auto) 10.9 % Maury % (Auto) 4.4 % Eos % (Auto) 0.4 % Baso % (Auto) 0.7 % Absolute Neuts (auto) 8.2 H (1.5-7.7) 10^3/ul Absolute Lymphs (auto) 1.1 (1.0-4.8) 10^3/ul Absolute Monos (auto) 0.4 (0-0.8) 10^3/ul Absolute Eos (auto) 0.0 (0-0.6) 10^3/ul Absolute Basos (auto) 0.1 (0-0.2) 10^3/ul Absolute Nucleated RBC 0.0 10^3/ul Nucleated RBC % 0.0 Result Diagrams: 08/05/19 09:33 08/05/19 09:33 Lab Statement: Any lab studies that have been ordered have been reviewed, and results considered in the medical decision making process. - Radiology Abd/Pel CT Radiology Interpretation Completed By: Radiologist Summary of Radiographic Findings: Impression: Wall thickening of the descending colon. This may represent colitis. Scattered diverticula in the sigmoid colon is noted. There is consistent with diverticulosis. Normal appendix. Hepatic cysts. ED physician has reviewed this report. - EKG 0942 Cardiac Rate: Tachycardia - 101 BPM EKG Rhythm: Sinus Tachycardia Summary of EKG Findings: An EKG at 0942 reveals sinus tachycardia at 101 BPM. No STEMI. ED physician has reviewed and interpreted this EKG. Re-Evaluation - Re-Evaluation First Eval Re-Evaluation Time: 13:30 Change: Improved Comment: We discussed all results and plan for discharge. GIGU Course/Dx - Course Course Of Treatment: Patient is a 64 y/o female presenting with intense episode of LLQ pain lasting 10-15 minutes accompanied by lightheadedness, nausea, and diaphoresis follow by 5-6 episodes of rectal bleeding without vomiting, decreased appetite, urinary symptoms, flank or back pain. Similar episodes of abdominal pain a few times a year, similar episode with rectal bleeding about 3- 5 years ago with benign workup but colonoscopy and removal of polyps a year ago. Hx HLD, hypothyroidism. FHx diverticulitis in mother. Physical exam reveals now acute abnormalities. Rectal exam shows no hemorrhoids, empty vault. IV access obtained. Patient received fluids. Blood work primarily WNL, except for absolute neutrophils 8.2, INR 1.23, APTT 45.5, glucose 128, and alkaline phosphatase of 124. First lactic acid WNL. Negative troponin. UA without any significant abnormalities. An EKG at 0942 reveals sinus tachycardia at 101 BPM, no STEMI. I attribute some of the patietnts tachycardia to anxiety, as she states I am freaking out. Abd/Pel CT impression reveals wall thickening of the descending colon possibly representing colitis, scattered diverticula in the sigmoid colon consistent with diverticulosis, normal appendix, hepatic cysts. Repeat lactic acid WNL. Patient unable to provide a stool sample. All results discussed. She is advised to follow up with her PCP in 2-3 days and GI in one week. Patient given Rx for Flagyl and Cipro with coarse started in the ED. Patient agreeable with discharge plan. - Diagnoses Provider Diagnoses: Rectal bleeding, Colitis Discharge ED - Sign-Out/Discharge Documenting (check all that apply): Patient Departure - Patient will be discharged home. - Discharge Plan Condition: Stable Disposition: HOME Prescriptions: Ciprofloxacin TAB* [Cipro 500 MG TAB*] 500 mg PO BID #28 tab metroNIDAZOLE [Flagyl 500 MG TAB] 500 mg PO TID #42 tab Patient Education Materials: Rectal Bleeding (ED), Colitis (ED) Referrals: Antonia Nugent MD [Primary Care Provider] - 3 Days Logan Young MD [Medical Doctor] - 1 Week Additional Instructions: Please take medication as prescribed. Follow up with your primary care provider in 2-3 days. Follow up with gastroenterology in one week. Return to the emergency department for any new or worsening symptoms such as severe abdominal pain or fevers. - Attestation Statements Document Initiated by Scribe: Yes Documenting Scribe: Lauren Nunez Provider For Whom Neil is Documenting (Include Credential): Dr. Alejo Mayen MD Scribe Attestation: Lauren Phipps scribed for Dr. Alejo Mayen MD on 08/05/19 at 1615. Status of Scribe Document: Ready
[2019-08-05] MEDS: NS 0.9% 1000 ML** 2,000 ML IV ONE ×2 (10:04→10:05)
[2019-08-05 10:14] LABS: Troponin I 0.01 ng/mL (<0.03)
[2019-08-05 10:16] LABS: Albumin 4.3 g/dL (3.2-5.2); Albumin/Globulin Ratio 1.2 (1-3); BUN/Creatinine Ratio 14.8 (8-20); Calcium 9.8 mg/dL (8.6-10.3); EGFR Non-African American 64.5 (>60); Globulin 3.6 g/dL (2-4); Potassium 3.7 mmol/L (3.5-5.0); Total Bilirubin 0.5 mg/dL (0.2-1.0); Total Protein 7.9 g/dL (6.4-8.9)
[2019-08-05] MEDS ORDERED: Iohexol 300* (CONTRAST) 10 ML SDV IV ONE (11:43)
[2019-08-05] MEDS ORDERED: Ciprofloxacin TAB* 500 MG PO ONE (13:15)
[2019-08-05] MEDS ORDERED: metroNIDAZOLE TAB* 250 MG PO ONE (13:15)
[2019-08-05 13:37] LABS: Urine Appearance Clear; Urine Bilirubin Negative (Negative); Urine Blood Negative (Negative); Urine Color Colorless; Urine Glucose Negative (Negative); Urine Ketones Negative (Negative); Urine Nitrite Negative (Negative); Urine Protein Negative (Negative); Urine Specific Gravity 1.016 (1.010-1.030); Urine Urobilinogen Negative (Negative)
[2019-08-05 13:49] VITALS: BP 142/87
== END 2019-08-05 13:48 | disposition home or self-care (01) ==
LOC: ED 09:09
DX: K52.9 Noninfective gastroenteritis and colitis, unspecified (principal); K62.5 Hemorrhage of anus and rectum; E03.9 Hypothyroidism, unspecified; E78.00 Pure hypercholesterolemia, unspecified; Z79.890 Hormone replacement therapy; Z79.899 Other long term (current) drug therapy
CPT/HCPCS: 36415; 74177; 80053; 81003; 83605; 84484; 85025; 85610; 85730; 87040; 93005; 96360; 96361; 99283; A9270-GY; Q9967